=== PATIENT | female | born 1960 | race Caucasian/White ===

== ENCOUNTER → 2019-07-17 | Outpatient (CLI) | payer OTHER ==
[2019-07-17 12:57] LABS: BF LYMPHOCYTES 100 %
[2019-07-17 12:58] LABS: BF MONOCYTES 0 %; BF POLYS 0 %; BF RBC 11638 /mm3; BODY FLUID BANDS 0 %; CLARITY CLOUDY; SOURCE L KNEE; TOTAL CELL COUNT 254 /mm3; TOTAL VOLUME 15 ml
[2019-07-18 17:57] LABS: SOURCE SYNOVIAL
== END ==
LOC: M.LAB 11:22
PROVIDERS: Orthopaedic Surgery
DX: M25.562 Pain in left knee (principal); Z96.652 Presence of left artificial knee joint